=== PATIENT | female | born 1990 | race Caucasian/White ===

== ENCOUNTER 2018-09-09 17:39 | Emergency (ER) | payer BC, OTHER ==
[2018-09-09] MEDS: IBUPROFEN 600 MG TAB PO (19:43)
== END 2018-09-09 20:40 | disposition home or self-care (01) ==
LOC: FTE 17:39
DX: S99.911A Unspecified injury of right ankle, initial encounter (principal); X58.XXXA Exposure to other specified factors, initial encounter; Y92.9 Unspecified place or not applicable
CPT/HCPCS: 73610; 73610-RT; 99283-25